=== PATIENT | female | born 1990 ===

== ENCOUNTER 2018-12-10 12:04 | Emergency (ER) | payer OTHER ==
[2018-12-10 12:19] VITALS: TEMP 98.2; O2SAT 99
--- NOTE | 2018-12-10 13:24 | ED PDOC ---
HPI: Abdomen Time Seen by Provider: 12/10/18 12:27 Chief Complaint (Nursing): Abdominal Pain Chief Complaint (Provider): abdominal pain History Per: Patient History/Exam Limitations: no limitations Additional Complaint(s): 28 y/o F with no significant PMH who presents with pelvic pain. Pt states that she has not had her menstrual period since 10/26/18. She had an episode of passing a large blood clot yesterday and has been having pelvic pain since yesterday as well. She is concerned that she may have had a miscarriage. Denies fever, chills, dysuria, urinary frequency, N/V, diarrhea. Also states that she noted white discharge coming from Left breast yesterday that looked like milk. Past Medical History Reviewed: Historical Data, Nursing Documentation, Vital Signs Vital Signs: Last Vital Signs Temp 98.2 F 12/10/18 12:15 Pulse 88 12/10/18 12:15 Resp 19 12/10/18 12:15 BP 152/86 H 12/10/18 12:15 Pulse Ox 99 12/10/18 12:15 - Medical History PMH: No Chronic Diseases - Surgical History Surgical History: No Surg Hx - Family History Family History: States: Unknown Family Hx - Home Medications Home Medications: Ambulatory Orders Medication Instructions Recorded Ibuprofen [Motrin Tab] 600 mg PO Q6 PRN 7 Days tab 12/10/18 - Allergies Allergies/Adverse Reactions: Allergies Allergy/AdvReac Type Severity Reaction Status Date / Time No Known Allergies Allergy Verified 12/10/18 12:19 Review of Systems Constitutional: Negative for: Fever Gastrointestinal: Positive for: Abdominal Pain. Negative for: Nausea, Vomiting, Diarrhea Genitourinary Female: Positive for: Vaginal Bleeding, Pelvic Pain. Negative for: Dysuria, Frequency, Vaginal Discharge Physical Exam - Reviewed Nursing Documentation Reviewed: Yes Vital Signs Reviewed: Yes - Physical Exam Appears: Positive for: No Acute Distress Cardiovascular/Chest: Positive for: Regular Rate, Rhythm, Other (B/L breasts, no erythema or discharge able to be expressed. No masses or nodules appreciated B/L or in axilla B/L. ) Respiratory: Positive for: Normal Breath Sounds Gastrointestinal/Abdominal: Positive for: Soft, Tenderness (RLQ and suprapubic tenderness on palpation as well as mild RUQ and LUQ mild tenderness. ), Guarding (RLQ and suprapubic). Negative for: Mass, Distended, Rebound - Laboratory Results Result Diagrams: 12/10/18 14:06 12/10/18 13:12 - ECG O2 Sat by Pulse Oximetry: 99 Medical Decision Making Medical Decision Making: CBC, CMP Transvaginal U/S GC/Chlamydia culture URine dip Urine preg Beta-HCG Ibuprofen 600mg PO x 1 TVUS: FINDINGS: UTERUS: Measures 5.7 x 3.5 x 4.2 cm. Normal in size and appearance. No fibroid or other mass lesion seen. ENDOMETRIUM: Measures 4.1 mm in diameter. The endometrial cavity is somewhat heterogeneous possibly due to likely due to blood products as this patient is currently undergoing vaginal bleeding as per technologist notation. CERVIX: No cervical abnormality identified. RIGHT OVARY: Measures 3.7 x 1.9 x 2.3 cm. No solid mass. Normal flow. . Multiple follicular cysts are present with of 1 of these anechoic structures measuring approximately LEFT OVARY: Measures 2.9 x 1.8 x 2.1 cm. No solid mass. Normal flow. FREE FLUID: Small amount of free fluid is present within the cul de sac. 1.7 x 1.1 x 1.3 cm; rule out on involuting or hemorrhagic cyst OTHER FINDINGS: None. IMPRESSION: Possible involuting and or hemorrhagic right ovarian cyst. There is a small amount of free fluid within the cul de sac. There is a heterogeneous appearance of the endometrial canal likely due to blood products as this patient is currently undergoing vaginal bleeding per technologist notation. Repeat sonography during the next menstrual cycle shortly following cessation of menses could be performed to assess for resolution of these changes. Patient advised to follow up with swimming instructor for further assessment of p ossible hormonal changes as cause of her symptoms and to re-evaluate heterogeneity of uterus. Advised to take Ibuprofen for discomfort. Patient states that pain has improved somewhat. STable for d/c home. Disposition - Clinical Impression Clinical Impression: Ruptured ovarian cyst Counseled Patient/Family Regarding: Studies Performed, Diagnosis, Need For Followup - Disposition [facility]errals: [facility] [Outside] [facility] [Outside] Disposition: Routine/Home Disposition Time: 17:08 Condition: STABLE Additional Instructions: follow up with swimming instructor as soon as possible for further evaluation Prescriptions: Ibuprofen [Motrin Tab] 600 mg PO Q6 PRN 7 Days tab PRN Reason: Pain, Moderate (4-7) Instructions: Ovarian Cyst (DC) Forms: [employer] ([place]ish), [facility] ED School/Work Excuse Print Language: HEBREW
[2018-12-10 14:10] LABS: BASO % 0.5 % (0.0-2.0); EOS # 0.1 K/uL (0.0-0.7); HEMOGLOBIN 12.7 g/dL (12.0-16.0); LYMPH # 2.3 K/uL (1.0-4.3); LYMPH % 33.4 % (20.0-40.0); MEAN CELL VOLUME 82.2 fl (81.0-99.0); MEAN CORPUSCULAR HEMOGLOBIN 27.2 pg (27.0-31.0); MEAN CORPUSCULAR HGB CONC 33.1 g/dL (33.0-37.0); MEAN PLATELET VOLUME 7.7 fl (7.2-11.7); MONO # 0.5 K/uL (0.0-0.8); MONO % 6.7 % (0.0-10.0); NEUT % 58.4 % (50.0-75.0); NRBC % 0.1 % (0.0-0.0); RBC 4.68 Mil/uL (3.80-5.20); WHITE BLOOD COUNT 6.9 K/uL (4.8-10.8)
[2018-12-10 15:22] LABS: BLOOD UREA NITROGEN 10 mg/dl (7-17); CALCIUM 9.1 mg/dL (8.4-10.2); GFR NON-AFRICAN AMERICAN > 60
--- NOTE | 2018-12-10 16:09 | US ---
Date of service: 12/10/2018 HISTORY: pelvic pain, blood clot yesterday COMPARISON: None available. TECHNIQUE: FINDINGS: UTERUS: Measures 5.7 x 3.5 x 4.2 cm. Normal in size and appearance. No fibroid or other mass lesion seen. ENDOMETRIUM: Measures 4.1 mm in diameter. The endometrial cavity is somewhat heterogeneous possibly due to likely due to blood products as this patient is currently undergoing vaginal bleeding as per technologist notation. CERVIX: No cervical abnormality identified. RIGHT OVARY: Measures 3.7 x 1.9 x 2.3 cm. No solid mass. Normal flow. . Multiple follicular cysts are present with of 1 of these anechoic structures measuring approximately LEFT OVARY: Measures 2.9 x 1.8 x 2.1 cm. No solid mass. Normal flow. FREE FLUID: Small amount of free fluid is present within the cul de sac. 1.7 x 1.1 x 1.3 cm; rule out on involuting or hemorrhagic cyst OTHER FINDINGS: None. IMPRESSION: Possible involuting and or hemorrhagic right ovarian cyst. There is a small amount of free fluid within the cul de sac. There is a heterogeneous appearance of the endometrial canal likely due to blood products as this patient is currently undergoing vaginal bleeding per technologist notation. Repeat sonography during the next menstrual cycle shortly following cessation of menses could be performed to assess for resolution of these changes.
[2018-12-10 17:09] VITALS: BP 140/80; PULSE 82; RESP 18
== END 2018-12-10 17:08 | disposition home or self-care (01) ==
LOC: H.ER 12:04
DX: N83.201 Unspecified ovarian cyst, right side (principal)